=== PATIENT | female | born 1940 | race African-American/Black ===

== ENCOUNTER 2016-12-19 05:22 | Inpatient (IN) | payer MEDICARE, MEDICAID ==
[~2016-12-19] VITALS: Ht 160 cm; Wt 73.9 kg
[~2016-12-19 05:22] MED LIST: ALLO100T PO; BETA45CR15 TP; CARV25TA47 PO; CHOL500010 PO; CYAN10009 PO; FURO20TA4 PO; GABA-529 PO; HYDR453.3 TP; LOSA50TA20 PO; OMEP20TA15 PO; POTA10CA42 PO
[2016-12-19] MEDS ORDERED: MAGNESIUM/ALUMINUM HYDROXIDE/SIMETHICONE 30ML UDC PO STA (06:54)
[2016-12-19] MEDS ORDERED: VISCOUS LIDOCAINE 2% 15 ML UDC PO STA (06:54)
[2016-12-19 07:13] LABS: EOSINOPHILS % 1.9 % (0.0-5.0); HEMATOCRIT. 35.9 % (36.0-48.0); LYMPHOCYTES % 22.7 % (20.0-50.0); MEAN CORPUSCULAR HEMOGLOBIN 31.9 pg (28.0-32.0); MEAN CORPUSCULAR HGB CONC 33.6 g/dL (31.0-37.0); MEAN CORPUSCULAR VOLUME 94.9 fL (81.0-99.0); MEAN PLATELET VOLUME 7.2 fl (7.4-10.4); MONOCYTES % 14.7 % (2.0-8.0); NEUTROPHILS % 59.7 % (40.0-76.0); PLATELET 165 x1000/uL (130-400); RED BLOOD CELL COUNT 3.78 mill/uL (4.2-5.4); RED CELL DISTRIBUTION WIDTH 15.7 % (11.6-14.6); WHITE BLOOD COUNT 3.6 x1000/uL (4.5-11.0)
[2016-12-19 07:25] LABS: ALANINE AMINOTRANSFERASE 16 IU/L (13-61); ANION GAP 16; CALCIUM 9.2 mg/dL (8.5-10.1); CARBON DIOXIDE 31 mEq/L (21-32); CHLORIDE 72 mEq/L (98-107); INDEX HEMOLYSI 1 (1-3); INDEX ICTERIC 1 (1-4); INDEX LIPEMIC 1 (1-3); LIPASE 160 IU/L (73-393); UREA NITROGEN BLOOD 29 mg/dL (7-21); eGFR 53 mL/min (>60)
[2016-12-19] MEDS ORDERED: SODIUM CHLORIDE 0.9% 500 ML IV ONE (09:00)
[2016-12-19 10:50] VITALS: BP 125/84
[2016-12-19] MEDS ORDERED: METF500T4 PO (11:15)
[2016-12-19] MEDS ORDERED: VALS40TA4 PO (11:15)
[2016-12-19] MEDS ORDERED: FURO-151 PO (11:15)
[2016-12-19 12:00] VITALS: BP 115/79
[2016-12-19] MEDS ORDERED: SODIUM CHLORIDE 3% 500ML IV SOLN IV ONE (13:15)
[2016-12-19] MEDS ORDERED: MORPHINE SULFATE 2 MG/ML CPJ (NOT FOR IM USE) IV PRN (13:15)
[2016-12-19] MEDS ORDERED: DEXTROSE 50% WATER 50ML SYRINGE IV PRN (13:30)
[2016-12-19] MEDS ORDERED: BISACODYL 5MG TABLET PO PRN (14:00)
[2016-12-19] MEDS ORDERED: SODIUM CHLORIDE 3% 250 ML IV ONE (14:30)
[2016-12-19] MEDS: PANTOPRAZOLE 40MG DR TABLET PO SCH (15:21)
[2016-12-19] MEDS: ASPIRIN 81MG TABLET PO SCH (15:21)
[2016-12-19] MEDS: SODIUM CHLORIDE 0.9% 1,000 ML IV SCH (15:21)
[2016-12-19] MEDS: ENOXAPARIN 40MG/0.4ML SYR SUBCUT SCH (15:22)
[2016-12-19] MEDS: ACETAMINOPHEN 325MG TABLET PO PRN (15:24)
[2016-12-19 16:00] VITALS: BP_SYST 128; BP_SYST 144; BP_DIAS 75; BP_DIAS 88
[2016-12-19 16:19] LABS: TROPONIN I < 0.02 ng/mL (0.00-0.04)
[2016-12-19 16:25] LABS: THYROID STIMULATING HORMONE 0.56 uIU/mL (0.36-3.74)
[2016-12-19] MEDS ORDERED: LEVOFLOXACIN 500MG PREMIX 100 ML IV NR (16:30)
[2016-12-19] MEDS: BLOOD SUGAR DIAGNOSTIC STRIP TEST SCH ×2 (17:20→22:52)
[2016-12-19] MEDS: INSULIN LISPRO 100 UNITS/ML SUBCUT SCH ×2 (17:50→21:00)
[2016-12-19 20:00] VITALS: BP 108/72
[2016-12-19] MEDS: CARVEDILOL 25MG TABLET PO SCH (22:48)
[2016-12-20] VITALS: BP 109/71
[2016-12-20] MEDS ORDERED: LEVOFLOXACIN 250MG PREMIX 50 ML IV SCH ×2 (03:00→16:30)
[2016-12-20] MEDS ORDERED: LEVOFLOXACIN 500MG PREMIX 100 ML IV NR (03:00)
[2016-12-20 04:00] VITALS: BP 119/77
[2016-12-20 06:53] LABS: HEMATOCRIT. 31.8 % (36.0-48.0); HEMOGLOBIN. 10.8 g/dL (12.0-16.0); MEAN CORPUSCULAR HEMOGLOBIN 32.3 pg (28.0-32.0); MEAN CORPUSCULAR VOLUME 95.1 fL (81.0-99.0); MEAN PLATELET VOLUME 7.7 fl (7.4-10.4); PLATELET 165 x1000/uL (130-400); RED BLOOD CELL COUNT 3.34 mill/uL (4.2-5.4); RED CELL DISTRIBUTION WIDTH 15.6 % (11.6-14.6); WHITE BLOOD COUNT 2.8 x1000/uL (4.5-11.0)
[2016-12-20 07:13] LABS: ALANINE AMINOTRANSFERASE 15 IU/L (13-61); ALBUMIN 3.3 g/dL (3.4-5.0); ANION GAP 13; CALCIUM 8.6 mg/dL (8.5-10.1); CARBON DIOXIDE 30 mEq/L (21-32); CHLORIDE 79 mEq/L (98-107); HDL CHOLESTEROL 84 mg/dL (40-59); INDEX HEMOLYSI 1 (1-3); INDEX ICTERIC 1 (1-4); INDEX LIPEMIC 1 (1-3); LDL CHOLESTEROL 69 mg/dL (5-100); TRIGLYCERIDE 56 mg/dL (0-150); UREA NITROGEN BLOOD 28 mg/dL (7-21); URIC ACID 3.8 mg/dL (2.6-7.2); eGFR 44 mL/min (>60)
[2016-12-20 07:16] LABS: DIFFERENTIAL COMMENT 1
[2016-12-20] MEDS: PANTOPRAZOLE 40MG DR TABLET PO SCH (07:19)
[2016-12-20] MEDS: BLOOD SUGAR DIAGNOSTIC STRIP TEST SCH ×4 (07:21→22:36)
[2016-12-20] MEDS: INSULIN LISPRO 100 UNITS/ML SUBCUT SCH ×2 (07:50→12:09)
[2016-12-20 08:00] VITALS: BP 123/75
[2016-12-20] MEDS: ASPIRIN 81MG TABLET PO SCH (08:58)
[2016-12-20] MEDS: CARVEDILOL 25MG TABLET PO SCH ×2 (08:59→22:33)
[2016-12-20] MEDS: SODIUM CHLORIDE 0.9% 1,000 ML IV SCH (09:30)
[2016-12-20 11:46] LABS: PLATELET ESTIMATE NORMAL
[2016-12-20 12:00] VITALS: BP 112/70
[2016-12-20 15:58] LABS: CALCIUM 8.5 mg/dL (8.5-10.1)
[2016-12-20 16:00] VITALS: BP 124/78
[2016-12-20] MEDS: ENOXAPARIN 40MG/0.4ML SYR SUBCUT SCH (17:53)
[2016-12-20 20:00] VITALS: BP 128/80
[2016-12-21] VITALS: BP 130/71
[2016-12-21 04:00] VITALS: BP 119/77
[2016-12-21] MEDS: LEVOFLOXACIN 250MG PREMIX 50 ML IV SCH (04:01)
[2016-12-21 06:18] LABS: HEMATOCRIT. 33.3 % (36.0-48.0); MEAN CORPUSCULAR HEMOGLOBIN 32.1 pg (28.0-32.0); MEAN CORPUSCULAR HGB CONC 33.1 g/dL (31.0-37.0); MEAN PLATELET VOLUME 7.6 fl (7.4-10.4); PLATELET 154 x1000/uL (130-400); RED BLOOD CELL COUNT 3.44 mill/uL (4.2-5.4); RED CELL DISTRIBUTION WIDTH 16.1 % (11.6-14.6); WHITE BLOOD COUNT 3.6 x1000/uL (4.5-11.0)
[2016-12-21 06:59] LABS: CALCIUM 8.6 mg/dL (8.5-10.1)
[2016-12-21 07:12] LABS: DIFFERENTIAL COMMENT 1
[2016-12-21] MEDS: SODIUM CHLORIDE 0.9% 1,000 ML IV SCH (07:41)
[2016-12-21] MEDS: PANTOPRAZOLE 40MG DR TABLET PO SCH (07:41)
[2016-12-21] MEDS: BLOOD SUGAR DIAGNOSTIC STRIP TEST SCH ×4 (07:43→21:00)
[2016-12-21 08:00] VITALS: BP 120/75
[2016-12-21] MEDS ORDERED: SODIUM POLYSTYRENE SULFONATE 15 G/60 ML BOT PO SCH (08:15)
[2016-12-21] MEDS: CARVEDILOL 25MG TABLET PO SCH ×2 (09:55→22:25)
[2016-12-21] MEDS: ASPIRIN 81MG TABLET PO SCH (09:55)
[2016-12-21 10:34] LABS: ANISOCYTOSIS 1+; PLATELET ESTIMATE NORMAL
[2016-12-21 12:00] VITALS: BP 106/78
[2016-12-21] MEDS: ACETAMINOPHEN 325MG TABLET PO PRN (15:50)
[2016-12-21 16:00] VITALS: BP 131/94
[2016-12-21] MEDS: ENOXAPARIN 40MG/0.4ML SYR SUBCUT SCH (18:00)
[2016-12-21 20:00] VITALS: BP 145/85
[2016-12-21] MEDS: INSULIN LISPRO 100 UNITS/ML SUBCUT SCH (21:00)
[2016-12-21] MEDS ORDERED: SODIUM CHLORIDE 3% 500ML IV SOLN IV NR (22:45)
[2016-12-22] VITALS: BP 124/81
[2016-12-22] MEDS: LEVOFLOXACIN 250MG PREMIX 50 ML IV SCH (02:43)
[2016-12-22 04:00] VITALS: BP 132/74
[2016-12-22] MEDS ORDERED: SODIUM CHLORIDE 3% 500 ML IV NR (04:00)
[2016-12-22] MEDS: BLOOD SUGAR DIAGNOSTIC STRIP TEST SCH ×4 (06:51→22:16)
[2016-12-22] MEDS: PANTOPRAZOLE 40MG DR TABLET PO SCH (06:51)
[2016-12-22] MEDS: SODIUM CHLORIDE 0.9% 1,000 ML IV SCH (06:51)
[2016-12-22 07:12] LABS: CHLORIDE 89 mEq/L (98-107); INDEX HEMOLYSI 1 (1-3); INDEX ICTERIC 1 (1-4); INDEX LIPEMIC 1 (1-3)
[2016-12-22 07:18] LABS: ALANINE AMINOTRANSFERASE 14 IU/L (13-61); ALBUMIN 3.2 g/dL (3.4-5.0); ANION GAP 14; CALCIUM 8.8 mg/dL (8.5-10.1); CARBON DIOXIDE 27 mEq/L (21-32); UREA NITROGEN BLOOD 20 mg/dL (7-21); eGFR > 60 mL/min (>60)
[2016-12-22] MEDS: INSULIN LISPRO 100 UNITS/ML SUBCUT SCH ×2 (07:50→12:50)
[2016-12-22 08:00] VITALS: BP 145/84
[2016-12-22] MEDS: CARVEDILOL 25MG TABLET PO SCH ×2 (09:30→22:29)
[2016-12-22] MEDS: ASPIRIN 81MG TABLET PO SCH (09:30)
[2016-12-22 12:00] VITALS: BP 135/82
[2016-12-22 16:00] VITALS: BP 144/94
[2016-12-22] MEDS: ENOXAPARIN 40MG/0.4ML SYR SUBCUT SCH (18:39)
[2016-12-22] MEDS ORDERED: SODIUM CHLORIDE 3% 500ML IV SOLN IV ONE (19:00)
[2016-12-22 20:00] VITALS: BP 144/65
[2016-12-22] MEDS ORDERED: SODIUM CHLORIDE 3% 500 ML IV ONE (20:30)
[2016-12-22] MEDS ORDERED: LEVOFLOXACIN 250MG TABLET PO SCH (21:00)
[2016-12-23] VITALS: BP 157/97
[2016-12-23 04:00] VITALS: BP 152/91
[2016-12-23 07:18] LABS: ALANINE AMINOTRANSFERASE 14 IU/L (13-61); ALBUMIN 3.1 g/dL (3.4-5.0); ANION GAP 13; CALCIUM 8.4 mg/dL (8.5-10.1); CARBON DIOXIDE 26 mEq/L (21-32); CHLORIDE 99 mEq/L (98-107); INDEX HEMOLYSI 1 (1-3); INDEX ICTERIC 1 (1-4); INDEX LIPEMIC 1 (1-3); UREA NITROGEN BLOOD 17 mg/dL (7-21); eGFR > 60 mL/min (>60)
[2016-12-23] MEDS: BLOOD SUGAR DIAGNOSTIC STRIP TEST SCH ×2 (07:46→12:25)
[2016-12-23] MEDS: INSULIN LISPRO 100 UNITS/ML SUBCUT SCH ×2 (07:50→12:25)
[2016-12-23 08:00] VITALS: BP 145/86
[2016-12-23] MEDS ORDERED: FAMOTIDINE 20MG TABLET PO SCH (09:00)
[2016-12-23] MEDS: ASPIRIN 81MG TABLET PO SCH (09:24)
[2016-12-23] MEDS: CARVEDILOL 25MG TABLET PO SCH (09:25)
[2016-12-23 12:00] VITALS: BP 142/86
[2016-12-23 12:30] VITALS: BP 135/75
== END 2016-12-23 13:05 | disposition home or self-care (01) | DRG 640 ==
LOC: ER 05:46 → OBSVTOIN 08:52 → 6EST 08:52 → INTOOBSV 08:52
PROVIDERS: ADMIT Internal Medicine; ATTEND Internal Medicine
DX: E87.1 Hypo-osmolality and hyponatremia (principal); J18.9 Pneumonia, unspecified organism; E11.9 Type 2 diabetes mellitus without complications; I50.9 Heart failure, unspecified; M10.9 Gout, unspecified; D64.9 Anemia, unspecified; M19.90 Unspecified osteoarthritis, unspecified site; I11.0 Hypertensive heart disease with heart failure; Z79.899 Other long term (current) drug therapy; Z72.89 Other problems related to lifestyle
CPT/HCPCS: 36415; 71250; 80048; 80053; 80061; 82533; 82962; 83690; 84443; 84484; 84550; 85025; 99285; J1650; J1815; J1956; J3490; J7030; J7040

== ENCOUNTER 2016-12-31 07:15 | Emergency (ER) | payer MEDICARE, MEDICAID ==
[~2016-12-31] VITALS: Ht 160 cm; Wt 72.0 kg
[~2016-12-31 07:15] MED LIST changes: -BETA45CR15 TP; -CHOL500010 PO; -CYAN10009 PO; -FURO20TA4 PO; -HYDR453.3 TP; -LOSA50TA20 PO; +METF500T4 PO; -OMEP20TA15 PO; -POTA10CA42 PO; +VALS40TA4 PO
[2016-12-31 08:13] LABS: BASOPHILS % 0.6 % (0.0-2.0); EOSINOPHILS % 1.4 % (0.0-5.0); HEMATOCRIT. 28.5 % (36.0-48.0); HEMOGLOBIN. 9.5 g/dL (12.0-16.0); LYMPHOCYTES % 15.3 % (20.0-50.0); MEAN CORPUSCULAR HEMOGLOBIN 32.6 pg (28.0-32.0); MEAN CORPUSCULAR HGB CONC 33.2 g/dL (31.0-37.0); MEAN CORPUSCULAR VOLUME 98.2 fL (81.0-99.0); MEAN PLATELET VOLUME 7.4 fl (7.4-10.4); MONOCYTES % 11.8 % (2.0-8.0); NEUTROPHILS % 70.9 % (40.0-76.0); PLATELET 152 x1000/uL (130-400); WHITE BLOOD COUNT 4.5 x1000/uL (4.5-11.0)
[2016-12-31 08:26] LABS: CALCIUM 8.2 mg/dL (8.5-10.1)
[2016-12-31 08:45] VITALS: BP 158/90
[2017-01-01] MEDS ORDERED: SPIR25TA4 PO (09:16)
== END 2016-12-31 12:46 | disposition home or self-care (01) ==
LOC: ER 07:37
DX: R06.02 Shortness of breath (principal); I50.9 Heart failure, unspecified; I10 Essential (primary) hypertension; E87.1 Hypo-osmolality and hyponatremia; E11.9 Type 2 diabetes mellitus without complications; Z87.891 Personal history of nicotine dependence
CPT/HCPCS: 36415; 71010; 80048; 83880; 85025; 99285

== ENCOUNTER 2017-01-01 05:44 | Observation (INO) | payer MEDICARE, MEDICAID ==
[~2017-01-01] VITALS: Ht 160 cm; Wt 73.5 kg
[2017-01-01] MEDS ORDERED: ALBUTEROL (0.083%) 2.5MG/3ML NEB HHN STA (06:14)
[2017-01-01] MEDS ORDERED: IPRATROPIUM BROMIDE (0.02%) 0.5MG/2.5ML NEB HHN STA (06:14)
[2017-01-01 06:34] LABS: EOSINOPHILS % 1.8 % (0.0-5.0); HEMATOCRIT. 29.2 % (36.0-48.0); HEMOGLOBIN. 9.8 g/dL (12.0-16.0); LYMPHOCYTES % 17.1 % (20.0-50.0); MEAN CORPUSCULAR HEMOGLOBIN 32.6 pg (28.0-32.0); MEAN CORPUSCULAR HGB CONC 33.5 g/dL (31.0-37.0); MEAN CORPUSCULAR VOLUME 97.3 fL (81.0-99.0); MEAN PLATELET VOLUME 8.1 fl (7.4-10.4); MONOCYTES % 10.8 % (2.0-8.0); NEUTROPHILS % 69.3 % (40.0-76.0); PLATELET 161 x1000/uL (130-400); RED CELL DISTRIBUTION WIDTH 16.7 % (11.6-14.6)
[2017-01-01 06:39] LABS: INR 1.1; PROTHROMBIN TIME 11.8 sec
[2017-01-01 06:53] LABS: ALANINE AMINOTRANSFERASE 15 IU/L (13-61); ALBUMIN 3.3 g/dL (3.4-5.0); ANION GAP 14; CALCIUM 8.2 mg/dL (8.5-10.1); CARBON DIOXIDE 24 mEq/L (21-32); CHLORIDE 96 mEq/L (98-107); INDEX HEMOLYSI 1 (1-3); INDEX ICTERIC 1 (1-4); INDEX LIPEMIC 1 (1-3); LIPASE 92 IU/L (73-393); MAGNESIUM 1.3 mg/dL (1.8-2.4); UREA NITROGEN BLOOD 11 mg/dL (7-21); eGFR 58 mL/min (>60)
[2017-01-01 06:54] LABS: NT PRO B-TYPE NATRIURETIC PEP 12045 pg/mL (5-125); TROPONIN I 0.06 ng/mL (0.00-0.04)
[2017-01-01] MEDS ORDERED: MAGNESIUM 2 G PREMIX 50 ML IV ONE (08:00)
[2017-01-01] MEDS ORDERED: FUROSEMIDE 40MG/4ML VIAL IVP ONE (08:00)
[2017-01-01] MEDS ORDERED: SPIR25TA4 PO (09:16)
[2017-01-01] MEDS ORDERED: CLONIDINE 0.1MG TABLET PO PRN (15:00)
[2017-01-01] MEDS ORDERED: HYDROCODONE/ACETAMINOPHEN 5/325MG TABLET PO PRN (15:00)
[2017-01-01] MEDS ORDERED: ONDANSETRON HCL 4MG/2ML VIAL IV PRN (15:00)
[2017-01-01] MEDS ORDERED: ACETAMINOPHEN 650MG/20.3ML UDC GT PRN (15:00)
[2017-01-01] MEDS ORDERED: IPRATROPIUM/ALBUTEROL 0.5-3(2.5)MG/3ML NEB INH PRN (15:00)
[2017-01-01] MEDS ORDERED: DEXTROSE 50% WATER 50ML SYRINGE IV PRN (15:15)
[2017-01-01] MEDS: CARVEDILOL 25MG TABLET PO SCH ×2 (15:17→21:01)
[2017-01-01] MEDS: SPIRONOLACTONE 25MG TABLET PO SCH (15:17)
[2017-01-01] MEDS ORDERED: FUROSEMIDE 40MG/4ML VIAL IVP NR (16:15)
[2017-01-01] MEDS: BLOOD SUGAR DIAGNOSTIC STRIP TEST SCH ×2 (16:29→21:01)
[2017-01-01] MEDS: MAGNESIUM OXIDE 400MG TABLET PO SCH (16:31)
[2017-01-01] MEDS: INSULIN LISPRO 100 UNITS/ML SUBCUT SCH ×2 (16:31→21:00)
[2017-01-01] MEDS: ALLOPURINOL 100 MG TABLET PO SCH (16:31)
[2017-01-01] MEDS: GABAPENTIN 100MG CAPSULE PO SCH (16:31)
[2017-01-01 17:20] LABS: CALCIUM 8.4 mg/dL (8.5-10.1)
[2017-01-01 23:05] LABS: TROPONIN I 0.04 ng/mL (0.00-0.04)
[2017-01-02 05:52] LABS: CALCIUM 8.6 mg/dL (8.5-10.1)
[2017-01-02 06:08] LABS: TROPONIN I 0.04 ng/mL (0.00-0.04)
[2017-01-02] MEDS: BLOOD SUGAR DIAGNOSTIC STRIP TEST SCH ×2 (06:29→11:27)
[2017-01-02] MEDS: INSULIN LISPRO 100 UNITS/ML SUBCUT SCH ×2 (06:29→11:27)
[2017-01-02] MEDS: CARVEDILOL 25MG TABLET PO SCH (08:16)
[2017-01-02] MEDS: GABAPENTIN 100MG CAPSULE PO SCH ×2 (08:17→12:19)
[2017-01-02] MEDS: SPIRONOLACTONE 25MG TABLET PO SCH (08:17)
[2017-01-02] MEDS: ALLOPURINOL 100 MG TABLET PO SCH (08:17)
[2017-01-02] MEDS: MAGNESIUM OXIDE 400MG TABLET PO SCH (08:17)
[2017-01-02 08:53] LABS: HEMOGLOBIN. 9.9 g/dL (12.0-16.0); MEAN CORPUSCULAR HEMOGLOBIN 31.9 pg (28.0-32.0); MEAN CORPUSCULAR VOLUME 96.7 fL (81.0-99.0); MEAN PLATELET VOLUME 8.8 fl (7.4-10.4); PLATELET 143 x1000/uL (130-400); WHITE BLOOD COUNT 4.3 x1000/uL (4.5-11.0)
[2017-01-02 08:57] LABS: DIFFERENTIAL COMMENT 1
[2017-01-02] MEDS ORDERED: FUROSEMIDE 40MG/4ML VIAL IVP SCH (09:00)
[2017-01-02] MEDS ORDERED: LOSARTAN POTASSIUM 50 MG TABLET PO SCH (09:00)
[2017-01-02] MEDS ORDERED: METFORMIN HCL 500MG TABLET PO SCH (09:00)
[2017-01-02 12:00] VITALS: BP 150/94
[2017-01-02 14:00] LABS: ANISOCYTOSIS 1+; PLATELET ESTIMATE NORMAL
[2017-01-25] MEDS ORDERED: CYAN10009 PO (11:04)
[2017-01-25] MEDS ORDERED: BETA45CR15 TP (11:05)
[2017-01-25] MEDS ORDERED: CHOL20004 PO (11:06)
[2017-01-25] MEDS ORDERED: FURO-151 PO (11:06)
[2017-01-25] MEDS ORDERED: CLON0.1T PO (11:07)
[2017-01-25] MEDS ORDERED: HYDR453.3 TP (11:07)
== END 2017-01-02 14:30 | disposition home or self-care (01) ==
LOC: ER 05:44 → INTOOBSV 07:46 → 5WST 07:46
PROVIDERS: ADMIT Internal Medicine; ATTEND Internal Medicine
DX: I50.23 Acute on chronic systolic (congestive) heart failure (principal); I11.0 Hypertensive heart disease with heart failure; M79.89 Other specified soft tissue disorders; E11.9 Type 2 diabetes mellitus without complications; I44.7 Left bundle-branch block, unspecified; E83.42 Hypomagnesemia; E87.8 Other disorders of electrolyte and fluid balance, not elsewhere classified; I42.9 Cardiomyopathy, unspecified; R60.0 Localized edema; E87.1 Hypo-osmolality and hyponatremia; J18.9 Pneumonia, unspecified organism; D64.9 Anemia, unspecified
CPT/HCPCS: 36415; 71010; 80048; 80053; 80061; 82550; 82962; 83690; 83735; 83880; 84443; 84484; 85025; 85610; 85730; 93005; 93306; 96365; 96375; 96376; 99291; G0378; J1940; J3475; J7611; 96374; J7030; J7620

== ENCOUNTER 2017-01-15 04:39 | Emergency (ER) | payer MEDICARE, MEDICAID ==
[~2017-01-15] VITALS: Ht 162.6 cm; Wt 76.0 kg
[~2017-01-15 04:39] MED LIST changes: +SPIR25TA4 PO
[2017-01-15 07:29] LABS: CHLORIDE 89 mEq/L (98-107); INDEX HEMOLYSI 1 (1-3); INDEX ICTERIC 1 (1-4); INDEX LIPEMIC 1 (1-3)
[2017-01-15 07:32] LABS: HEMATOCRIT. 30.2 % (36.0-48.0); HEMOGLOBIN. 10.2 g/dL (12.0-16.0); MEAN CORPUSCULAR HEMOGLOBIN 32.8 pg (28.0-32.0); MEAN CORPUSCULAR HGB CONC 33.9 g/dL (31.0-37.0); MEAN CORPUSCULAR VOLUME 96.9 fL (81.0-99.0); PLATELET 147 x1000/uL (130-400); RED BLOOD CELL COUNT 3.11 mill/uL (4.2-5.4); RED CELL DISTRIBUTION WIDTH 16.5 % (11.6-14.6); WHITE BLOOD COUNT 2.8 x1000/uL (4.5-11.0)
[2017-01-15 07:38] LABS: ALANINE AMINOTRANSFERASE 11 IU/L (13-61); ALBUMIN 3.3 g/dL (3.4-5.0); ANION GAP 14; CALCIUM 8.6 mg/dL (8.5-10.1); CARBON DIOXIDE 27 mEq/L (21-32); LIPASE 91 IU/L (73-393); UREA NITROGEN BLOOD 8 mg/dL (7-21); eGFR > 60 mL/min (>60)
[2017-01-15 07:39] LABS: DIFFERENTIAL COMMENT 1
[2017-01-15 08:13] LABS: CLARITY URINE CLEAR (CLEAR); COLOR URINE YELLOW (YELLOW); GLUCOSE URINE NEGATIVE (NEGATIVE); KETONES URINE NEGATIVE (NEGATIVE); LEUKOCYTE ESTERASE URINE NEGATIVE (NEGATIVE); NITRITE URINE NEGATIVE (NEGATIVE); OCCULT BLOOD URINE NEGATIVE (NEGATIVE); PH URINE 6.5 (4.5-8.0); PROTEIN URINE NEGATIVE (NEGATIVE); SPECIFIC GRAVITY URINE 1.007 (1.005-1.030); UROBILINOGEN URINE 0.2 E.U./dL (0.2-1.0)
[2017-01-15 08:32] LABS: ANISOCYTOSIS 1+; PLATELET ESTIMATE NORMAL
[2017-01-15 10:46] VITALS: BP 137/98
== END 2017-01-15 10:50 | disposition home or self-care (01) ==
LOC: ER 04:39
DX: I11.0 Hypertensive heart disease with heart failure (principal); Z79.899 Other long term (current) drug therapy; I50.9 Heart failure, unspecified; E11.8 Type 2 diabetes mellitus with unspecified complications; Z87.891 Personal history of nicotine dependence; E87.1 Hypo-osmolality and hyponatremia
CPT/HCPCS: 36415; 71010; 80053; 81003; 83690; 85025; 93005; 99285